=== PATIENT | male | born 1970 | race Caucasian/White ===

== ENCOUNTER 2020-08-25 11:13 | Outpatient (REF) | payer OTHER, SELFPAY | END 2020-08-25 11:14 | disposition home or self-care (01) | LOC: HO.LAB 11:13 | PROVIDERS: Visit Provider Internal Medicine | DX: Z20.828 Contact with and (suspected) exposure to other viral communicable diseases (principal) | CPT/HCPCS: C9803; U0003 ==

== ENCOUNTER 2020-11-03 16:29 | Outpatient (REF) | payer OTHER, SELFPAY | END 2020-11-03 16:30 | disposition home or self-care (01) | LOC: HO.LAB 16:29 | PROVIDERS: Visit Provider Internal Medicine | DX: Z20.822 Contact with and (suspected) exposure to COVID-19 (principal) | CPT/HCPCS: 36415; C9803; U0003 ==

== ENCOUNTER 2024-07-29 15:14 | Emergency (ER) | payer OTHER, SELFPAY ==
--- NOTE | ~2024-07-29 | XR_ITS ---
EXAMINATION: XR CHEST 4:37 PM CLINICAL INFORMATION: Chest pain, shortness of breath COMPARISON: 11/26/2019 TECHNIQUE: Frontal view of the chest was obtained. FINDINGS: There are low lung volumes. No focal pneumonia is detected. The cardiac silhouette is magnified by the AP position. XR/XR chest 1V IMPRESSION: Grossly clear AP portable chest x-ray. Electronically signed by: Morteza Rodrigues MD 07/29/2024 04:55 PM EDT
--- NOTE | 2024-07-29 15:24 | ED_ITS ---
HPI - Allergic Reaction General Chief complaint: Allergic Reaction Stated complaint: Allergic Reaction Time Seen by Provider: 07/29/24 15:32 Source: patient and family Mode of arrival: ambulatory Limitations: no limitations History of Present Illness ED Provider: DR. Jason HPI narrative: 53-year-old male walked into the emergency department after started to have sore throat, difficulty breathing, wheezing, patient is not known to have any environmental allergy stated that he was shopping at [employer] when he tried pesto sauce at [employer] then shortly after started have the above symptoms, no itching, no rash. Never had similar symptoms in the past, no known allergy. As per patient is not taking any medication at home. Patient the ED complaining of chest tightness and chest pain with no radiation. Never had similar symptoms in the past. Related Data Allergies Allergy/AdvReac Type Severity Reaction Status Date / Time No Known Allergies Allergy Verified 07/29/24 15:30 Review of Systems 2 Review of Systems: All other systems are reviewed and are negative Constitutional: Reports as per HPI and Reports no additional constitutional complaints Eyes: Reports as per HPI and Reports no additional eye complaints Reports system reviewed and no additional complaints, except as documented Cardiovascular: Reports as per HPI and Reports no additional cardiovascular complaints Respiratory: Reports as per HPI and Reports no additional respiratory complaints Gastrointestinal: Reports as per HPI and Reports no additional gastrointestinal complaints Genitourinary: Reports no additional female genitourinary complaints Musculoskeletal: Reports no additional musculoskeletal complaints Skin/Breast: Reports system reviewed and no additional complaints, except as docu Psychiatric: Reports no additional psychiatric complaints Endocrine: Reports no additional endocrine complaints Hematologic/Lymphatic: Reports no additional hematologic/lymphatic complaints Allergic/Immunologic: Reports no additional allergic/immunologic complaints Reports system reviewed and no additional complaints, except as documented and Reports Abnormal speech present [facility] Past Medical History Surgical History (Updated 07/29/24 @ 15:37 by Tegan Barragan RN) H/O knee surgery Social History Social History Smoked in Last 30 Days: No Use of substances other than those prescribed or required for medical reasons: No Advance Directives: No Advance Directives Information Provided: No Physical Exam ED Vital Signs: Vital Signs - 24 hr 07/29/24 15:28 07/29/24 15:39 07/29/24 15:45 Pulse Rate 122 H 110 H Pulse Rate [Left Automated] 111 H Respiratory Rate 30 H 18 Blood Pressure 152/89 H Pulse Oximetry 96 Oxygen Delivery Method Room Air BMI result Body Mass Index 35.1 Course Reevaluation(s) Reevaluation #1: Patient appear better with no respiratory distress, labs are unremarkable, EKG is sinus tachycardia at 109, troponin is negative will repeat troponin in 3 hours will monitor the patient in the ED until symptoms completely resolve case signed out to Dr. Majano Time: 16:15 Medications Administered Generic Name Dose Route Start Last Admin Trade Name Freq PRN Reason Stop Dose Admin Sodium Chloride 1,000 mls @ 999 mls/hr 07/29/24 15:23 07/29/24 15:35 Ns IV 07/29/24 16:23 999 mls/hr .Q1H1M ONE Administration Discontinued Medications Generic Name Dose Route Start Last Admin Trade Name Freq PRN Reason Stop Dose Admin Albuterol Sulfate 2.5 mg/ 0 mg 07/29/24 15:34 07/29/24 15:45 Albuterol/Ipratropium 3 ml INHALE 07/29/24 15:35 1 dose ONCE ONE Administration Diphenhydramine HCl 50 mg 07/29/24 15:22 07/29/24 15:34 Diphenhydramine Hcl 50 Mg/Ml Vial IVPUSH 07/29/24 15:23 50 mg ONCE ONE Administration Famotidine 20 mg 07/29/24 15:22 07/29/24 15:34 Famotidine/Pf 20 Mg/2 Ml Vial IVPUSH 07/29/24 15:23 20 mg ONCE ONE Administration Methylprednisolone Sodium Succinate 125 mg 07/29/24 15:22 07/29/24 15:34 Methylprednisolone Sod Succ 125 Mg/2 Ml Vial IVPUSH 07/29/24 15:23 125 mg ONCE ONE Administration Medical Decision Making Differential Diagnosis Differential Diagnoses: The differential diagnosis associated with the presentation includes ( anaphylaxis, allergic reaction, acute asthma exacerbation, ACS, electrolyte derangement, severe anemia, airway compromise.) Admission/Observation Consideration of admission/observation: Escalation of care including admission/observation considered Lab Data MDM Lab Attestation statement: I reviewed the patient's lab results. 07/29/24 15:39 07/29/24 15:39 Labs: Lab Results 07/29/24 Range/Units 15:39 WBC 6.3 (4.8-10.8) X10*3/uL RBC 5.11 (4.60-5.80) X10*6/uL Hgb 15.5 (14.0-18.0) g/dl Hct 45.6 (42.0-52.0) % MCV 89.2 (80.0-98.0) fL MCH 30.3 (27.0-33.0) pg MCHC 34.0 (31.0-36.0) g/dl RDW 12.9 (11.0-16.0) % Plt Count 281 (160-400) X10*3/uL MPV 10.7 (9.4-12.4) fL Immature Gran % (Auto) 0.2 (0.0-0.4) % Neut % (Auto) 42.1 L (45-73) % Lymph % (Auto) 45.3 H (20-40) % Morgan % (Auto) 8.2 (2-11) % Eos % (Auto) 3.6 (0-4) % Baso % (Auto) 0.6 (0-2) % Lymph # (Auto) 2.9 (1.2-4.9) X10*3/uL Morgan # (Auto) 0.5 (0.1-1.2) X10*3/uL Eos # (Auto) 0.2 (0.0-0.4) X10*3/uL Baso # (Auto) 0.0 (0.0-0.2) X10*3/uL Abs Immat Gran (auto) 0.01 (0.00-0.03) X10*3/uL Absolute Neuts (auto) 2.7 (2.0-8.3) x10*3/uL Absolute Nucleated RBC 0.000 (0.0-0.012) X10*3/uL Nucleated RBC % (auto) 0.0 (0.0-0.2) /100WBC Sodium 140 (135-145) mmol/L Potassium 3.7 (3.3-5.1) mmol/L Chloride 104 (96-108) mmol/L Carbon Dioxide 23 (22-29) mmol/L Anion Gap 17 (12-20) BUN 13 (9-16) mg/dL Creatinine 0.85 (0.5-1.4) mg/dL Estim Creat Clear Calc 107.9 Estimated GFR > 60 Random Glucose 133 H (60-115) mg/dL Calcium 9.5 (8.4-10.2) mg/dL Troponin I High Sens < 2.7 (<3.5-35.0) ng/L Discharge Plan Discharge Clinical Impression: Allergic reaction, Chest pain Patient Disposition: Still a Patient Print Language: Hungarian
--- NOTE | 2024-07-29 15:27 | ECG_ITS ---
Test Reason : ALLERGIC REACTION Blood Pressure : / mmHG Vent. Rate : 109 BPM Atrial Rate : 109 BPM P-R Int : 146 ms QRS Dur : 102 ms QT Int : 368 ms P-R-T Axes : 073 003 039 degrees QTc Int : 495 ms Sinus tachycardia Otherwise normal ECG When compared with ECG of 18-NOV-2018 16:48, QT has lengthened Referred By: Tanya Jason Electronically Signed By:CAROLYN MELÉNDEZ
[2024-07-29 15:28] VITALS: BP 152/89; PULSE 122; RESP 30; O2SAT 96; BMI 40.3
[2024-07-29] MEDS: diphenhydrAMINE HCL 50 MG/ML VIAL IVPUSH (15:34)
[2024-07-29] MEDS: Famotidine/PF 20 MG/2 ML VIAL IVPUSH (15:34)
[2024-07-29] MEDS: methylPREDNISolone Sod Succ 125 MG/2 ML VIAL IVPUSH (15:34)
[2024-07-29] MEDS: 0.9 % Sodium Chloride 1,000 ML 999 ML IV (15:35)
[2024-07-29 15:39] VITALS: PULSE 111
--- NOTE | 2024-07-29 15:40 | PC.NURSE ---
patient a&ox3, lungs in/ex wheezing throughout, stridor heard in throat area, pt speaking in short sentences, monitoring specialist applied sinus tach on monitor, O2 sat was92% but pt felt he was unable to take a deep breath, placed patient on 2L NC which brought him up to 95%, pt denies difficulty swallowing, call anne within reach, will continue to monitor
[2024-07-29 15:43] LABS: MANUAL DIFF FLAG NO
[2024-07-29 15:45] VITALS: PULSE 110; RESP 18; O2SAT 98
[2024-07-29 15:45] LABS: Basophils Percent Auto 0.6 % (0-2); Eosinophils Absolute Auto 0.2 X10*3/uL (0.0-0.4); Eosinophils Percent Auto 3.6 % (0-4); Hematocrit 45.6 % (42.0-52.0); Hemoglobin 15.5 g/dl (14.0-18.0); Imm Gran Abs Auto 0.01 X10*3/uL (0.00-0.03); Imm Gran Pct Auto 0.2 % (0.0-0.4); Lymphocytes Absolute Auto 2.9 X10*3/uL (1.2-4.9); Lymphocytes Percent Auto 45.3 % (20-40); Mean Corpuscular Hemoglobin 30.3 pg (27.0-33.0); Mean Corpuscular Volume 89.2 fL (80.0-98.0); Mean Platelet Volume 10.7 fL (9.4-12.4); Monocytes Absolute Auto 0.5 X10*3/uL (0.1-1.2); Monocytes Percent Auto 8.2 % (2-11); Neutrophils Absolute Auto 2.7 x10*3/uL (2.0-8.3); Neutrophils Percent Auto 42.1 % (45-73); Platelet Count 281 X10*3/uL (160-400); Red Blood Count 5.11 X10*6/uL (4.60-5.80); Red Cell Distribution Width 12.9 % (11.0-16.0); White Blood Count 6.3 X10*3/uL (4.8-10.8)
[2024-07-29] MEDS: Albuterol Sulfate 2.5 MG, Albuterol/Iprat 2.5/0.5MG 3 ML 3 ML INHALE (15:45)
[2024-07-29 15:53] VITALS: BMI 35.1
[2024-07-29 16:01] LABS: Anion Gap 17 (12-20); Blood Urea Nitrogen 13 mg/dL (9-16); Calcium 9.5 mg/dL (8.4-10.2); Carbon Dioxide 23 mmol/L (22-29); Chloride 104 mmol/L (96-108); Creatinine Clr Calc Pharmacy 107.9; Estimated Glomerular Filt Rate > 60; Glucose Random 133 mg/dL (60-115); Potassium 3.7 mmol/L (3.3-5.1); Sodium 140 mmol/L (135-145)
[2024-07-29 16:10] LABS: Troponin-I High Sensitivity < 2.7 ng/L (<3.5-35.0)
[2024-07-29] MEDS: Loratadine 10 MG TABLET PO (16:51)
--- NOTE | 2024-07-29 16:52 | PC.NURSE ---
pt a&ox3, cardiac care nurse sinus tach, pt stridor has resolved, faint wheezing in RUL remains, pt states he feel better than previously, speaking in full sentences and able to swallow normally. pt had c/o itchiness- provider was notified- no rash noted but was medicated for itchiness per order, call anne within reach, will continue to monitor
[2024-07-29 17:12] VITALS: BP 122/65; PULSE 106; RESP 18; TEMP 36.3; O2SAT 99
[2024-07-29 18:58] VITALS: BP 123/72; PULSE 105; RESP 15; TEMP 37.1; O2SAT 94
--- NOTE | 2024-07-29 18:58 | PC.NURSE ---
this rn assumed care of pt. pt a&ox4, respirations even and unlabored. pt noted to be sinus tachy, 100-102. lung sounds clear bilaterally.
--- NOTE | 2024-07-29 19:00 | ECG_ITS ---
Test Reason : TCHYCARDIA Blood Pressure : / mmHG Vent. Rate : 107 BPM Atrial Rate : 107 BPM P-R Int : 152 ms QRS Dur : 094 ms QT Int : 368 ms P-R-T Axes : 059 -04 036 degrees QTc Int : 491 ms Sinus tachycardia Possible Left atrial enlargement Incomplete right bundle branch block Borderline ECG No significant changes when compared with the previous EKG of 29 jul 2024 Referred By: Salvador Ortiz Electronically Signed By:CAROLYN MELÉNDEZ
[2024-07-29 19:36] LABS: Troponin-I High Sensitivity < 2.7 ng/L (<3.5-35.0)
[2024-07-29 20:20] VITALS: BP 123/72; PULSE 105; RESP 15; TEMP 37.1; O2SAT 94
== END 2024-07-29 20:22 | disposition home or self-care (01) ==
PROVIDERS: Emergency Medicine; Emergency Provider Emergency Medicine; PCP Internal Medicine Geriatric Medicine
DX: R07.89 Other chest pain (principal); R06.02 Shortness of breath; J02.9 Acute pharyngitis, unspecified; R11.0 Nausea; T78.1XXA Other adverse food reactions, not elsewhere classified, initial encounter; T78.49XA Other allergy, initial encounter; X58.XXXA Exposure to other specified factors, initial encounter; Z79.899 Other long term (current) drug therapy
CPT/HCPCS: 36415; 71045; 80048; 84484; 85025; 93005; 94640; 96361; 96374; 96375; 99284; 99285; J1200; J2919

== ENCOUNTER → 2024-07-29 15:27 | Outpatient (BNV) | payer OTHER, SELFPAY | PROVIDERS: Emergency Provider Emergency Medicine; PCP Internal Medicine Geriatric Medicine; Visit Provider Internal Medicine | DX: R00.0 Tachycardia, unspecified (principal) | CPT/HCPCS: 93010 ==